=== PATIENT | female | born 2000 | race Caucasian/White ===

== ENCOUNTER 2021-03-27 14:21 | Emergency (ER) | payer BC, OTHER ==
[~2021-03-27] VITALS: Ht 162.5 cm; Wt 55.0 kg
[2021-03-27] MEDS ORDERED: PROMETHAZINE INJ 25 MG/ML (PHENERGAN) AMP IVP ONE (14:45)
[2021-03-27] MEDS ORDERED: PROM25TA14 PO (14:47)
--- NOTE | 2021-03-27 14:47 | ED General ---
General Stated Complaint: N/V,DIZZINESS 9 WKS PREG Source of Information: Patient Exam Limitations: No Limitations History of Present Illness Date Seen by Provider: Mar 27, 2021 Time Seen by Provider: 14:45 Initial Comments To ER with nausea vomiting dizziness cough and malaise and about 9 weeks gestation. . She was told if she cannot keep fluids down she should come to the emergency room. She has Zofran ODT at home but has not taken any today. She denies any abdominal pain or vaginal bleeding only complains of nausea. OB is at [facility] in [place] where she lives. Her significant other lives here and she intends to move here as well. Timing/Duration: 1-2 Days Severity: Moderate Associated Systoms: Nausea/Vomiting Allergies and Home Medications Allergies Coded Allergies: azithromycin (Verified Allergy, Mild, 03/27/21) Sulfa (Sulfonamide Antibiotics) (Verified Allergy, Unknown, 03/27/21) Home Medications Cefuroxime Axetil 250 Mg Tablet, 250 MG PO BID Prescribed by: KAILA LÓPEZ on 03/27/21 1709 Last Action: New Order Promethazine HCl 25 Mg Tablet, 25 MG PO Q6H PRN for NAUSEA/VOMITING Prescribed by: KAILA LÓPEZ on 03/27/21 1447 Patient Home Medication List Home Medication List Reviewed: Yes Review of Systems Review of Systems Constitutional: see HPI EENTM: see HPI Respiratory: no symptoms reported Gastrointestinal: No abdominal pain; nausea, vomiting Genitourinary: no symptoms reported Musculoskeletal: see HPI Skin: no symptoms reported Psychiatric/Neurological: No Symptoms Reported Hematologic/Lymphatic: No Symptoms Reported Physical Exam Vital Signs Vital Signs - First Documented 03/27/21 15:01 Temp 36.6 Pulse 98 Resp 18 B/P (MAP) 125/68 (87) Pulse Ox 98 O2 Delivery Room Air Capillary Refill : Height, Weight, BMI Height: '" Weight: lbs. oz. kg; BMI Method: General Appearance: No Apparent Distress, WD/WN, Thin, Other (No distress a little tachycardic rate of 110 alert and oriented very pleasant) Eyes: Bilateral Eye Normal Inspection, Bilateral Eye PERRL, Bilateral Eye EOMI Neck: Full Range of Motion, Normal Inspection Respiratory: No Accessory Muscle Use, No Respiratory Distress Cardiovascular: Normal Peripheral Pulses, Tachycardia Gastrointestinal: Non Tender, Soft Extremity: Normal Capillary Refill, Normal Inspection Neurologic/Psychiatric: Alert, Oriented x3 Skin: Normal Color, Warm/Dry Progress/Results/Core Measures Suspected Sepsis SIRS Temperature: Pulse: Respiratory Rate: Laboratory Tests 03/27/21 14:40: White Blood Count 10.7 Blood Pressure / Mean: Laboratory Tests 03/27/21 14:40: Creatinine 0.66, Platelet Count 204, Total Bilirubin 0.5 Results/Orders Lab Results Laboratory Tests Test 03/27/21 14:40 03/27/21 15:42 Range/Units White Blood Count 10.7 4.3-11.0 10^3/uL Red Blood Count 4.72 3.80-5.11 10^6/uL Hemoglobin 14.0 11.5-16.0 g/dL Hematocrit 41 35-52 % Mean Corpuscular Volume 88 80-99 fL Mean Corpuscular Hemoglobin 30 25-34 pg Mean Corpuscular Hemoglobin Concent 34 32-36 g/dL Red Cell Distribution Width 13.2 10.0-14.5 % Platelet Count 204 130-400 10^3/uL Mean Platelet Volume 10.0 9.0-12.2 fL Immature Granulocyte % (Auto) 0 % Neutrophils (%) (Auto) 79 H 42-75 % Lymphocytes (%) (Auto) 12 12-44 % Monocytes (%) (Auto) 7 0-12 % Eosinophils (%) (Auto) 1 0-10 % Basophils (%) (Auto) 0 0-10 % Neutrophils # (Auto) 8.5 H 1.8-7.8 10^3/uL Lymphocytes # (Auto) 1.3 1.0-4.0 10^3/uL Monocytes # (Auto) 0.8 0.0-1.0 10^3/uL Eosinophils # (Auto) 0.1 0.0-0.3 10^3/uL Basophils # (Auto) 0.0 0.0-0.1 10^3/uL Immature Granulocyte # (Auto) 0.0 0.0-0.1 10^3/uL Sodium Level 138 135-145 MMOL/L Potassium Level 3.6 3.6-5.0 MMOL/L Chloride Level 105 98-107 MMOL/L Carbon Dioxide Level 20 L 21-32 MMOL/L Anion Gap 13 5-14 MMOL/L Blood Urea Nitrogen 6 L 7-18 MG/DL Creatinine 0.66 0.60-1.30 MG/DL Estimat Glomerular Filtration Rate > 60 BUN/Creatinine Ratio 9 Glucose Level 82 70-105 MG/DL Calcium Level 9.2 8.5-10.1 MG/DL Corrected Calcium 9.0 8.5-10.1 MG/DL Total Bilirubin 0.5 0.1-1.0 MG/DL Aspartate Amino Transf (AST/SGOT) 17 5-34 U/L Alanine Aminotransferase (ALT/SGPT) 12 0-55 U/L Alkaline Phosphatase 59 40-136 U/L Total Protein 7.3 6.4-8.2 GM/DL Albumin 4.3 3.2-4.5 GM/DL Human Chorionic Gonadotropin, Quant [id number] H <5 MIU/ML Urine Color YELLOW Urine Clarity CLEAR Urine pH 6.0 5-9 Urine Specific [place] <=1.005 1.016-1.022 Urine Protein NEGATIVE NEGATIVE Urine Glucose (UA) NEGATIVE NEGATIVE Urine Ketones TRACE H NEGATIVE Urine Nitrite POSITIVE H NEGATIVE Urine Bilirubin NEGATIVE NEGATIVE Urine Urobilinogen 0.2 < = 1.0 MG/DL Urine Leukocyte Esterase 2+ H NEGATIVE Urine RBC (Auto) NEGATIVE NEGATIVE Urine RBC NONE /HPF Urine WBC 5-10 H /HPF Urine Crystals PRESENT H /LPF Urine Amorphous Sediment FEW CRISTÓBAL URATES H /LPF Urine Bacteria LARGE H /HPF Urine Casts NONE /LPF Urine Mucus NEGATIVE /LPF Urine Culture Indicated YES My Orders Orders - KAILA LÓPEZ APRN Cbc With Automated Diff (03/27/21 14:41) Comprehensive Metabolic Panel (03/27/21 14:41) Ua Culture If Indicated (03/27/21 14:41) Hcg,Quantitative (03/27/21 14:41) Ed Iv/Invasive Line Start (03/27/21 14:41) Lactated Ringers (Lr 1000 Ml Iv Solution (03/27/21 14:45) Promethazine Injection (Phenergan Injec (03/27/21 14:45) Diphenhydramine Injection (Benadryl Inje (03/27/21 16:00) Ondansetron Injection (Zofran Injectio (03/27/21 16:15) Urine Culture (03/27/21 15:42) Ceftriaxone (Rocephin) (03/27/21 16:30) Lactated Ringers (Lr 1000 Ml Iv Solution (03/27/21 16:45) Covid 19 Inhouse Test (03/27/21 17:11) Medications Given in ED Current Medications Medications Dose Ordered Sig/Jade Route Start Time Stop Time Status Last Admin Dose Admin Ceftriaxone Sodium 1000 mg/ Sterile Water 10 ml @ 200 mls/hr ONCE ONCE IV 03/27/21 16:30 03/27/21 16:32 DC 03/27/21 16:40 200 MLS/HR Diphenhydramine HCl 25 mg ONCE ONCE IVP 03/27/21 16:00 03/27/21 16:01 DC 03/27/21 16:09 25 MG Ondansetron HCl 8 mg ONCE ONCE IVP 03/27/21 16:15 03/27/21 16:16 DC 03/27/21 16:09 8 MG Promethazine HCl 25 mg ONCE ONCE IVP 03/27/21 14:45 03/27/21 14:46 DC 03/27/21 14:51 25 MG Vital Signs/I&O 03/27/21 15:01 Temp 36.6 Pulse 98 Resp 18 B/P (MAP) 125/68 (87) Pulse Ox 98 O2 Delivery Room Air Capillary Refill : Departure Communication (Admissions) Limited Bedside transabdominal US shows intrauterine with cardiac ac tivity at 165-170 bpm. Impression Primary Impression: Nausea and vomiting in Disposition: HOME, SELF-CARE Condition: Stable Departure-Patient Inst. Decision time for Depature: 14:46 Referrals: DAVID GARZA BETHANY N MD GAULT, HOLLY R MD KOEHN, DANIEL J MD NO,LOCAL PHYSICIAN (PCP) Primary Care Physician Patient Instructions: Nausea and Vomiting of (DC), Urinary Tract Infection, Adult (DC) Add. Discharge Instructions: 1. Medication as directed. Return to ER for any concerns. Use your Zofran oral dissolving tablets as necessary. If these are unable to control the nausea then use the additional nausea medication. Scripts Cefuroxime Axetil (Cefuroxime) 250 Mg Tablet 250 MG PO BID, #10 TAB Prov: KAILA LÓPEZ MUTUAL FUND MANAGER 03/27/21 Promethazine HCl (Promethazine Tablet) 25 Mg Tablet 25 MG PO Q6H PRN for NAUSEA/VOMITING, #10 TAB Prov: KAILA LÓPEZ MUTUAL FUND MANAGER 03/27/21 KAILA LÓPEZ APRN Mar 27, 2021 14:47
[2021-03-27 14:50] LABS: BASOPHILS % (AUTO) 0 % (0-10); EOSINOPHILS # (AUTO) 0.1 10^3/uL (0.0-0.3); EOSINOPHILS % (AUTO) 1 % (0-10); HEMATOCRIT 41 % (35-52); LYMPHOCYTES # (AUTO) 1.3 10^3/uL (1.0-4.0); LYMPHOCYTES % (AUTO) 12 % (12-44); MEAN CORPUSCULAR HEMOGLOBIN 30 pg (25-34); MEAN CORPUSCULAR HGB CONC 34 g/dL (32-36); MEAN CORPUSCULAR VOLUME 88 fL (80-99); MONOCYTES # (AUTO) 0.8 10^3/uL (0.0-1.0); MONOCYTES % (AUTO) 7 % (0-12); NEUTROPHILS # (AUTO) 8.5 10^3/uL (1.8-7.8); NEUTROPHILS % (AUTO) 79 % (42-75); PLATELET COUNT 204 10^3/uL (130-400); WHITE BLOOD COUNT 10.7 10^3/uL (4.3-11.0)
[2021-03-27] MEDS: LACTATED RINGERS 1,000 ML IV SCH ×2 (14:51→16:45)
[2021-03-27 15:00] LABS: ALBUMIN 4.3 GM/DL (3.2-4.5); CHLORIDE 105 MMOL/L (98-107); POTASSIUM 3.6 MMOL/L (3.6-5.0); SODIUM 138 MMOL/L (135-145)
[2021-03-27 15:02] LABS: CALCIUM 9.2 MG/DL (8.5-10.1)
[2021-03-27 15:03] LABS: GLUCOSE 82 MG/DL (70-105); TOTAL PROTEIN 7.3 GM/DL (6.4-8.2)
[2021-03-27 15:04] LABS: CARBON DIOXIDE 20 MMOL/L (21-32)
[2021-03-27 15:05] LABS: BILIRUBIN,TOTAL 0.5 MG/DL (0.1-1.0)
[2021-03-27 15:06] LABS: ALKALINE PHOSPHATASE 59 U/L (40-136); CREATININE SERUM 0.66 MG/DL (0.60-1.30); GFR ESTIMATED > 60
[2021-03-27 15:07] LABS: BUN/CREATININE RATIO 9
[2021-03-27 15:09] LABS: ALANINE AMINOTRANSFERASE 12 U/L (0-55)
[2021-03-27 15:50] LABS: BILIRUBIN,URINE NEGATIVE (NEGATIVE); CLARITY,URINE CLEAR; COLOR,URINE YELLOW; GLUCOSE, URINE (UA) NEGATIVE (NEGATIVE); KETONES,URINE TRACE (NEGATIVE); LEUKOCYTE ESTERASE ,URINE 2+ (NEGATIVE); NITRITE,URINE POSITIVE (NEGATIVE); PROTEIN,URINE NEGATIVE (NEGATIVE)
[2021-03-27] MEDS ORDERED: diphenhydrAMINE 50 MG/ML INJ (BENADRYL) IVP ONE (16:00)
[2021-03-27] MEDS ORDERED: ONDANSETRON 4 MG (ZOFRAN) ORAL DISSOLVE TAB PO STA (16:00)
[2021-03-27] MEDS ORDERED: ONDANSETRON 4 MG/2 ML (SDV) Z0FRAN IVP ONE (16:15)
[2021-03-27 16:20] LABS: AMORPHOUS SEDIMENT,UR FEW AMOR URATES /LPF; BACTERIA,URINE LARGE /HPF
[2021-03-27] MEDS ORDERED: cefTRIAXone 1,000 MG in WATER (STERILE) FOR INJECTION 10 ML IV ONE (16:30)
[2021-03-27] MEDS ORDERED: LACTATED RINGERS 1,000 ML IV SCH (16:45)
[2021-03-27] MEDS ORDERED: CEFU250T80 PO (17:09)
[2021-03-27 17:19] VITALS: BP 114/60
== END 2021-03-27 17:19 | disposition home or self-care (01) ==
LOC: ER 14:24
DX: O21.0 Mild hyperemesis gravidarum (principal); Z3A.09 9 weeks gestation of pregnancy; Z20.822 Contact with and (suspected) exposure to COVID-19
CPT/HCPCS: 36415; 80053; 81000; 84702; 85025; 87077; 87088; 87186; 87636

== ENCOUNTER 2021-05-10 23:30 | Emergency (ER) | payer BC ==
[~2021-05-10 23:30] MED LIST: CEFU250T80 PO; PROM25TA14 PO
== END 2021-05-11 00:37 | disposition left against medical advice (07) ==
LOC: EDUNIT# 23:30 → ER 23:32
DX: O26.891 Other specified pregnancy related conditions, first trimester (principal); R20.0 Anesthesia of skin; Z3A.15 15 weeks gestation of pregnancy

== ENCOUNTER 2021-05-29 21:44 | Emergency (ER) | payer BC ==
[2021-05-29] MEDS ORDERED: CEPHALEXIN 250 MG (KEFLEX) CAP PO ONE ×2 (22:00→22:15)
[2021-05-29] MEDS ORDERED: ACETAMINOPHEN 500 MG TAB (TYLENOL) PO ONE (22:00)
--- NOTE | 2021-05-29 22:22 | ED General ---
General Chief Complaint: Bite-Animal/Human/Insect Stated Complaint: LT ARM PAIN/BURNING SPIDER BITE Nursing Triage Note: Pt presents with a spider bite to left upper arm. Pt said she noticed it about 6 hours ago. Source of Information: Patient Exam Limitations: No Limitations History of Present Illness Date Seen by Provider: May 29, 2021 Time Seen by Provider: 21:50 Initial Comments Patient is a 20-year-old G1, P0, 19-week expectant female who presents with spider bite to left tricep region. Patient noted pain and itching in this region several hours ago. She is in the process of cleaning a new home which has stirred up brown recluse spiders. Patient denies direct observation of spider bite. She states over the past several hours there has become more tender indurated and swollen. She reports feeling weak body aches malaise. No shortness of breath chest pain or palpitations. No fever chills or sweats. No history of spider allergy. However, patient states she has previously been bit by a brown recluse spider in her right arm. Timing/Duration: 4-6 Hours Severity: Mild Modifying Factors: improves with Other Associated Systoms: Other Allergies and Home Medications Allergies Coded Allergies: azithromycin (Verified Allergy, Mild, 03/27/21) Sulfa (Sulfonamide Antibiotics) (Verified Allergy, Unknown, 03/27/21) Patient Home Medication List Home Medication List Reviewed: Yes Cefuroxime Axetil (Cefuroxime) 250 Mg Tablet, 250 MG PO BID Prescribed by: KAILA LÓPEZ on 03/27/21 1709 Promethazine HCl (Promethazine Tablet) 25 Mg Tablet, 25 MG PO Q6H PRN for NAUSEA/VOMITING Prescribed by: KAILA LÓPEZ on 03/27/21 1447 Review of Systems Review of Systems Constitutional: no symptoms reported, see HPI Cardiovascular: see HPI Gastrointestinal: see HPI Genitourinary: see HPI Musculoskeletal: see HPI Psychiatric/Neurological: See HPI Hematologic/Lymphatic: See HPI Immunological/Allergic: see HPI All Other Systems Reviewed Negative Unless Noted: Yes Past Ecjchbt-Mbvxga-Ltiruz Hx Patient Social History Tobacco Use?: No Use of E-Cig and/or Vaping dev: No Substance use?: No Pt feels they are or have been: No Physical Exam Vital Signs Vital Signs - First Documented 05/29/21 21:46 Pulse 97 Resp 18 B/P (MAP) 140/68 (92) Pulse Ox 100 O2 Delivery Room Air Capillary Refill : Less Than 3 Seconds Height, Weight, BMI Height: '" Weight: lbs. oz. kg; 20.00 BMI Method: General Appearance: No Apparent Distress, WD/WN Eyes: Bilateral Eye Normal Inspection, Bilateral Eye PERRL HEENT: PERRL/EOMI Neck: Full Range of Motion, Normal Inspection Respiratory: Lungs Clear Cardiovascular: Regular Rate, Rhythm Extremity: Other (Tender indurated erythematous region in the left mid central tricep. No fluctuance, drainage, weeping. No streaking.) Focused Exam Sepsis Stage: Ruled Out Progress/Results/Core Measures Suspected Sepsis SIRS Temperature: Pulse: 97 Respiratory Rate: 18 Blood Pressure 140 /68 Mean: 92 Results/Orders My Orders Orders - DAPHNE CASTRO DO Acetaminophen Tablet (Tylenol Tablet) (05/29/21 22:00) Cephalexin Capsule (Keflex Capsule) (05/29/21 22:15) Medications Given in ED Current Medications Medications Dose Ordered Sig/Jade Route Start Time Stop Time Status Last Admin Dose Admin Acetaminophen 1,000 mg ONCE ONCE PO 05/29/21 22:00 05/29/21 22:01 DC 05/29/21 22:17 1,000 MG Cephalexin HCl 250 mg ONCE ONCE PO 05/29/21 22:15 05/29/21 22:16 DC 05/29/21 22:17 250 MG Vital Signs/I&O 05/29/21 21:46 Pulse 97 Resp 18 B/P (MAP) 140/68 (92) Pulse Ox 100 O2 Delivery Room Air Capillary Refill : Less Than 3 Seconds Blood Pressure Mean: 92 Departure Communication (Admissions) Exam consistent with spider bite with localized reaction and symptoms of mild symptoms spider venom toxicity. Tylenol and Keflex given. Recommendations are watchful waiting supportive care with PCP follow-up. Return precautions reviewed. Patient verbalizes understanding agreement with discharge instructions prior to departure Impression Primary Impression: Spider bite, venomous Disposition: HOME, SELF-CARE Condition: Stable Departure-Patient Inst. Referrals: NO,LOCAL PHYSICIAN (PCP/Family) Primary Care Physician Patient Instructions: Insect Bites and Stings ED Add. Discharge Instructions: You were evaluated in the emergency department for a spider bite to your left tricep. Please take 650 mg of Tylenol 4 times daily and antibiotics as directed. Follow-up with your PCP in 3 to 5 days for reevaluation. Return to the ED if new or worsening symptoms. All discharge instructions reviewed with patient and/or family. Voiced understanding. Scripts Cephalexin (Cephalexin) 500 Mg Tablet 250 MG PO TID, #21 TAB Prov: DAPHNE CASTRO DO 05/29/21 DAPHNE CASTRO DO May 29, 2021 22:22
[2021-05-29] MEDS ORDERED: CEPH500T PO (22:28)
[2021-05-29 22:33] VITALS: BP 140/68
== END 2021-05-29 22:34 | disposition home or self-care (01) ==
LOC: EDUNIT# 21:44 → ER FS 21:45
DX: O99.712 Diseases of the skin and subcutaneous tissue complicating pregnancy, second trimester (principal); T63.331A Toxic effect of venom of brown recluse spider, accidental (unintentional), initial encounter; Z3A.19 19 weeks gestation of pregnancy
CPT/HCPCS: 99281

== ENCOUNTER 2021-07-23 06:36 | Emergency (ER) | payer BC ==
[~2021-07-23] VITALS: Ht 162.7 cm; Wt 67.7 kg
[~2021-07-23 06:36] MED LIST changes: +CEPH500T PO
--- NOTE | 2021-07-23 06:47 | ED Chest Pain ---
General Stated Complaint: CP,26 WKS PREG Source: patient Exam Limitations: no limitations History of Present Illness Date Seen by Provider: Jul 23, 2021 Time Seen by Provider: 06:40 Initial Comments 20yoF with PMH of PCOS, ovarian cysts, anxiety, and is 26 weeks (LMP 11/17/20) following with OB in [place] woke up 0345 with midline chest pain radiating to throat. Nothing like this before. H/o panic attacks and anxiety. Took tums and drank some water which helped. One episode of nb/b emesis after. Says the pain is severe and dull, worse with moving or talking. Slightly different than her normal GERD. Otherwise denying fever, chills, weakness, numbness, SOB, abd pain, diarrhea, or any other concerns. has been uncomplicated, feeling baby move, no vaginal bleeding, no loss of fluids. Allergies and Home Medications Allergies Coded Allergies: azithromycin (Verified Allergy, Mild, 03/27/21) Sulfa (Sulfonamide Antibiotics) (Verified Allergy, Unknown, 03/27/21) Patient Home Medication List Home Medication List Reviewed: Yes Cefuroxime Axetil (Cefuroxime) 250 Mg Tablet, 250 MG PO BID Prescribed by: KAILA LÓPEZ on 03/27/21 1709 Cephalexin (Cephalexin) 500 Mg Tablet, 250 MG PO TID Prescribed by: DAPHNE CASTRO on 05/29/21 2228 Promethazine HCl (Promethazine Tablet) 25 Mg Tablet, 25 MG PO Q6H PRN for NAUSEA/VOMITING Prescribed by: KAILA LÓPEZ on 03/27/21 1447 Review of Systems Review of Systems Constitutional: No chills, No fever EENTM: No Blurred Vision Respiratory: Denies Cough, Denies Shortness of Air Cardiovascular: Chest Pain Gastrointestinal: Denies Abdominal Pain, Denies Diarrhea, Denies Nausea, Denies Vomiting Genitourinary: Denies Burning Musculoskeletal: No back pain Skin: no symptoms reported Psychiatric/Neurological: No Symptoms Reported Endocrine: No Symptoms Reported Hematologic/Lymphatic: No Symptoms Reported All Other Systems Reviewed Negative Unless Noted: Yes Past Pbswiqd-Wwvkmv-Dckaac Hx Patient Social History Tobacco Use?: No Substance use?: No Alcohol Use?: No Past Medical History Surgeries: No Physical Exam Vital Signs Vital Signs - First Documented 07/23/21 06:50 Temp 36.6 Pulse 78 Resp 20 B/P (MAP) 109/60 (76) O2 Delivery Room Air Capillary Refill : Height, Weight, BMI Height: '" Weight: lbs. oz. kg; 20.00 BMI Method: General Appearance: No Apparent Distress, WD/WN HEENT: PERRL/EOMI, Normal ENT Inspection, Pharynx Normal Neck: Full Range of Motion, Normal Inspection, Non Tender, Supple Respiratory: Chest Non Tender, Lungs Clear, Normal Breath Sounds, No Accessory Muscle Use, No Respiratory Distress Cardiovascular: Regular Rate, Rhythm, No Edema, Normal Peripheral Pulses Gastrointestinal: Normal Bowel Sounds, Non Tender, Soft; No Distended, No Guarding; Other (gravid uterus) Extremity: Normal Capillary Refill, Normal Inspection, Normal Range of Motion, Non Tender, No Calf Tenderness, No Pedal Edema Neurologic/Psychiatric: Alert, No Motor/Sensory Deficits, Normal Mood/Affect Skin: Normal Color, Warm/Dry Lymphatic: No Adenopathy Progress/Results/Core Measures Results/Orders Lab Results Laboratory Tests Test 07/23/21 07:30 Range/Units White Blood Count 11.5 H 4.3-11.0 10^3/uL Red Blood Count 4.27 3.80-5.11 10^6/uL Hemoglobin 12.6 11.5-16.0 g/dL Hematocrit 38 35-52 % Mean Corpuscular Volume 88 80-99 fL Mean Corpuscular Hemoglobin 30 25-34 pg Mean Corpuscular Hemoglobin Concent 33 32-36 g/dL Red Cell Distribution Width 12.6 10.0-14.5 % Platelet Count 227 130-400 10^3/uL Mean Platelet Volume 10.6 9.0-12.2 fL Immature Granulocyte % (Auto) 1 % Neutrophils (%) (Auto) 73 42-75 % Lymphocytes (%) (Auto) 16 12-44 % Monocytes (%) (Auto) 8 0-12 % Eosinophils (%) (Auto) 2 0-10 % Basophils (%) (Auto) 0 0-10 % Neutrophils # (Auto) 8.4 H 1.8-7.8 10^3/uL Lymphocytes # (Auto) 1.8 1.0-4.0 10^3/uL Monocytes # (Auto) 0.9 0.0-1.0 10^3/uL Eosinophils # (Auto) 0.2 0.0-0.3 10^3/uL Basophils # (Auto) 0.0 0.0-0.1 10^3/uL Immature Granulocyte # (Auto) 0.1 0.0-0.1 10^3/uL Sodium Level 137 135-145 MMOL/L Potassium Level 3.4 L 3.6-5.0 MMOL/L Chloride Level 108 H 98-107 MMOL/L Carbon Dioxide Level 18 L 21-32 MMOL/L Anion Gap 11 5-14 MMOL/L Blood Urea Nitrogen 5 L 7-18 MG/DL Creatinine 0.53 L 0.60-1.30 MG/DL Estimat Glomerular Filtration Rate 146 BUN/Creatinine Ratio 9 Glucose Level 90 70-105 MG/DL Calcium Level 9.1 8.5-10.1 MG/DL Corrected Calcium 9.6 8.5-10.1 MG/DL Total Bilirubin 0.3 0.1-1.0 MG/DL Aspartate Amino Transf (AST/SGOT) 17 5-34 U/L Alanine Aminotransferase (ALT/SGPT) 14 0-55 U/L Alkaline Phosphatase 146 H 40-136 U/L Troponin I < 0.028 <0.028 NG/ML B-Type Natriuretic Peptide < 10.0 <100.0 PG/ML Total Protein 6.4 6.4-8.2 GM/DL Albumin 3.4 3.2-4.5 GM/DL Lipase 27 8-78 U/L My Orders Orders - JOSE PLASENCIA MD Ed Iv/Invasive Line Start (07/23/21 07:18) Ekg Tracing (07/23/21 07:18) Monitor-Rhythm Ecg Trace Only (07/23/21 07:18) BNP (07/23/21 07:18) Cbc With Automated Diff (07/23/21 07:18) Comprehensive Metabolic Panel (07/23/21 07:18) Lipase (07/23/21 07:18) Troponin I (07/23/21 07:18) Chest 1 View, Ap/Pa Only (07/23/21 07:18) Antacid Suspension (Mylanta Suspension (07/23/21 07:30) Acetaminophen Tablet (Tylenol Tablet) (07/23/21 07:30) Medications Given in ED Current Medications Medications Dose Ordered Sig/Jade Route Start Time Stop Time Status Last Admin Dose Admin Acetaminophen 1,000 mg ONCE ONCE PO 07/23/21 07:30 07/23/21 07:31 DC 07/23/21 07:28 1,000 MG Al Hydrox/Mg Hydrox/Simethicone 30 ml ONCE ONCE PO 07/23/21 07:30 07/23/21 07:31 DC 07/23/21 07:33 30 ML Vital Signs/I&O 07/23/21 06:50 Temp 36.6 Pulse 78 Resp 20 B/P (MAP) 109/60 (76) O2 Delivery Room Air Progress Progress Note : Progress Note Well-appearing 20-year-old female that is 26 weeks coming in due to chest pain. ABCs were intact and vitals were stable on presentation. Physical exam reassuring, she does have a gravid uterus with a soft abdomen otherwise with no pain on palpation. Heart rate is in the 80s. She is low risk for a PE per Garden criteria and is PERC negative effectively ruling out PE. She has no risk factors for early cardiac disease, and does not smoke. She was given Tylenol and Maalox for her discomfort. I did a [id number]-kh-[id number] ultrasound and there was heart movements and the heart rate was around 130. Labs were significant for negative troponin, normal BNP, slightly low potassium, normal creatinine. Chest x-ray normal. On reevaluation she was well appearing and relatively symptom-free. I believe she is stable for discharge with outpatient follow-up with her OB. She is not having any real OB complaints including no vomiting, abdominal pain, LFTs are normal today, no vaginal bleeding, and has had a normal . She was sent home with strict return precautions peer Initial ECG Impression Date: Jul 23, 2021 Initial ECG Impression Time: 07:26 Initial ECG Rate: 73 Initial ECG Rhythm: Normal Sinus Initial ECG Comparisson: No Previous ECG Available Comment Narrow QRS, normal axis, no significant ST changes, Q wave inversions in leads III, V1, and V2 which are all nonspecific Diagnostic Imaging Diagonstic Imaging: Xray Plain Films/CT/US/NM/MRI: chest Comments [facility] [place], [place] NAME: [facility] REC#: [id number] PT STATUS: REG ER : 2000 PHYSICIAN: JOSE PLASENCIA MD ADMIT DATE: 07/23/21/ER Draft Date of Exam:07/23/21 CHEST 1 VIEW, AP/PA ONLY INDICATION: Chest pain. TIME OF EXAM: 8:00 a.m. No prior studies are available for comparison. The heart size is normal. The pulmonary vascularity is unremarkable. The lungs are clear. No infiltrate, effusion or pneumothorax is detected. IMPRESSION: No acute cardiopulmonary process is detected. Dictated on workstation # [id number] Dict: 07/23/21820 Trans: 07/23/21824 [facility] [id number] Interpreted by: RACHEL GUNTER MD Electronically signed by: Departure Impression Primary Impression: Chest pain Qualified Codes: R07.9 - Chest pain, unspecified Additional Impression: Qualified Codes: Z3A.26 - 26 weeks gestation of Disposition: 01 HOME, SELF-CARE Condition: Stable Departure-Patient Inst. Decision time for Depature: 08:32 Referrals: NO,LOCAL PHYSICIAN (PCP/Family) Primary Care Physician Patient Instructions: Chest Pain Add. Discharge Instructions: You are seen in the emergency department for chest pain. Fortunately your EKG, chest x-ray, and labs are all reassuring and it does not appear like you are having anything serious such as a heart attack or a blood clot. This is likely related to worsening of your GERD symptoms as this happens during . I recommend taking some [id number]-zet-zwdvqiz Maalox when symptoms are getting worse. I do recommend you follow-up with your OB within the next couple of days. JOSE PLASENCIA MD Jul 23, 2021 06:47
[2021-07-23] MEDS ORDERED: ACETAMINOPHEN 500 MG TAB (TYLENOL) PO ONE (07:30)
[2021-07-23] MEDS ORDERED: ANTACID SUSP 30 ML UDC (MYLANTA) PO ONE (07:30)
--- OUTSIDE RECORDS SUMMARY | 2021-07-23 07:36 | XMS REPORT | Encounter Summary ---
Author Author [facility] Address Unknown Phone Unavailable Care Team Providers Care Implementation Director Name Role Phone PCP Unavailable Reason for Referral * Consultation (Routine) - Closed Diagnoses / Procedures [facility] Lashae Dinh MD [address] [place] [address] [facility] [address], [address] [place] [address] Obstetrics and Gynecology Referral ID Status Reason Start Date Expiration Visits Vi sits Date Requested Authorized [id number] Closed Specialty Services 05/27/2021 11/24/2021 1 1 Required Encounter Details Care Team Description Date Type Department Lashae Dinh MD [address] [place] [address] (Primary Dx) 05/27/2021 Transcribe [facility] al Orders [facility] [address], [address] [place] [address] Social History Date Tobacco Use Types Packs/Day Years Used Never Assessed Sex Assigned at Date Recorded Not on file documented as of this encounter Plan of Treatment Order Schedule Name Type Priority Associated Diag noses 1 Occurrences starting 05/27/2021 until 11/24/2021 Amb Referral To Ob-Pharmacy Operations Specialist Outpatient Routine Pregnan cy Referral documented as of this encounter Visit Diagnoses Diagnosis - Primary state, incidental documented in this encounter
--- OUTSIDE RECORDS SUMMARY | 2021-07-23 07:36 | XMS REPORT | Clinical Summary ---
Author Author [facility] Organization [facility] Address Unknown Phone Unavailable Care Team Providers Care Welding Equipment Sales Representative Name Role Phone PCP Unavailable Allergies Not on File Medications Not on file Active Problems Not on file Encounters Care Team Description Date Type Specialty Lashae Dinh MD (Primary Dx) 05/27/2021 Transcribe Obstetrics and Gyne cology Orders 05/27/2021 Documentation Obstetrics and Gyne cology from Last 3 Months Social History Date Tobacco Use Types Packs/Day Years Used Never Assessed Sex Assigned at Date Recorded Not on file Last Filed Vital Signs Not on file Plan of Treatment Not on file Results Not on filefrom Last 3 Months Insurance Type Payer Benefit Subscriber ID Effective Phone Address Plan / Dates Group [facility] [id number] 2020-P [id number] [place] [address] [id number] 2021- [address]) HEALTH Present [address] [place] [address] Advance Directives For more information, please contact: [phone] 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
--- OUTSIDE RECORDS SUMMARY | 2021-07-23 07:36 | XMS REPORT | Encounter Summary ---
Author Author [facility] Organization [facility] Address Unknown Phone Unavailable Care Team Providers Care Course Developer Name Role Phone PCP Unavailable Encounter Details Care Team Description Date Type Department 05/27/2021 Documentation [facility] [address], [address] [place] [address] Social History Date Tobacco Use Types Packs/Day Years Used Never Assessed Sex Assigned at Date Recorded Not on file documented as of this encounter Plan of Treatment Not on filedocumented as of this encounter Visit Diagnoses Not on filedocumented in this encounter
[2021-07-23 07:42] LABS: BASOPHILS % (AUTO) 0 % (0-10); EOSINOPHILS # (AUTO) 0.2 10^3/uL (0.0-0.3); EOSINOPHILS % (AUTO) 2 % (0-10); HEMATOCRIT 38 % (35-52); HEMOGLOBIN 12.6 g/dL (11.5-16.0); LYMPHOCYTES # (AUTO) 1.8 10^3/uL (1.0-4.0); LYMPHOCYTES % (AUTO) 16 % (12-44); MEAN CORPUSCULAR HEMOGLOBIN 30 pg (25-34); MEAN CORPUSCULAR HGB CONC 33 g/dL (32-36); MEAN CORPUSCULAR VOLUME 88 fL (80-99); MEAN PLATELET VOLUME 10.6 fL (9.0-12.2); MONOCYTES # (AUTO) 0.9 10^3/uL (0.0-1.0); MONOCYTES % (AUTO) 8 % (0-12); NEUTROPHILS # (AUTO) 8.4 10^3/uL (1.8-7.8); NEUTROPHILS % (AUTO) 73 % (42-75); PLATELET COUNT 227 10^3/uL (130-400); WHITE BLOOD COUNT 11.5 10^3/uL (4.3-11.0)
[2021-07-23 08:08] LABS: ALANINE AMINOTRANSFERASE 14 U/L (0-55); ALBUMIN 3.4 GM/DL (3.2-4.5); ALKALINE PHOSPHATASE 146 U/L (40-136); BILIRUBIN,TOTAL 0.3 MG/DL (0.1-1.0); BUN/CREATININE RATIO 9; CALCIUM 9.1 MG/DL (8.5-10.1); CARBON DIOXIDE 18 MMOL/L (21-32); CHLORIDE 108 MMOL/L (98-107); CREATININE SERUM 0.53 MG/DL (0.60-1.30); GFR ESTIMATED 146; GLUCOSE 90 MG/DL (70-105); LIPASE 27 U/L (8-78); POTASSIUM 3.4 MMOL/L (3.6-5.0); SODIUM 137 MMOL/L (135-145); TOTAL PROTEIN 6.4 GM/DL (6.4-8.2)
--- NOTE | 2021-07-23 08:25 | Diagnostic Imaging Report ---
INDICATION: Chest pain. TIME OF EXAM: 8:00 a.m. No prior studies are available for comparison. The heart size is normal. The pulmonary vascularity is unremarkable. The lungs are clear. No infiltrate, effusion or pneumothorax is detected. IMPRESSION: No acute cardiopulmonary process is detected. Dictated by: Dictated on workstation # [id number]
[2021-07-23 09:17] VITALS: BP 109/67
== END 2021-07-23 09:22 | disposition home or self-care (01) ==
LOC: EDUNIT# 06:36 → ER 06:40
DX: O99.412 Diseases of the circulatory system complicating pregnancy, second trimester (principal); R07.9 Chest pain, unspecified; Z3A.26 26 weeks gestation of pregnancy
CPT/HCPCS: 36415; 71045; 80053; 83690; 83880; 84484; 85025; 93005

== ENCOUNTER 2021-09-06 19:48 | Outpatient (CLI) | payer BC ==
[~2021-09-06] VITALS: Ht 162 cm; Wt 69.3 kg
[2021-09-06 20:21] VITALS: BP 127/75
[2021-09-06 20:23] LABS: BILIRUBIN,URINE NEGATIVE (NEGATIVE); CLARITY,URINE SL CLOUDY; COLOR,URINE YELLOW; GLUCOSE, URINE (UA) NEGATIVE (NEGATIVE); KETONES,URINE TRACE (NEGATIVE); LEUKOCYTE ESTERASE ,URINE 2+ (NEGATIVE); NITRITE,URINE NEGATIVE (NEGATIVE); PROTEIN,URINE NEGATIVE (NEGATIVE)
[2021-09-06 20:27] VITALS: BP 127/75
[2021-09-06 20:39] LABS: BACTERIA,URINE LARGE /HPF; YEAST,URINE LARGE /HPF
[2021-09-06] MEDS ORDERED: ceFAZolin INJECTION 1,000 MG VIAL IV ONE (20:45)
[2021-09-06] MEDS ORDERED: ceFAZolin INJECTION 1,000 MG ONE (20:52)
[2021-09-06] MEDS ORDERED: NS IV 1000 ML 1,000 ML ONE (20:56)
[2021-09-06] MEDS: NS IV 1000 ML 1,000 ML IV SCH (21:01)
[2021-09-06 21:12] LABS: BASOPHILS % (AUTO) 0 % (0-10); EOSINOPHILS # (AUTO) 0.1 10^3/uL (0.0-0.3); EOSINOPHILS % (AUTO) 1 % (0-10); HEMATOCRIT 39 % (35-52); HEMOGLOBIN 12.4 g/dL (11.5-16.0); LYMPHOCYTES # (AUTO) 2.8 10^3/uL (1.0-4.0); LYMPHOCYTES % (AUTO) 21 % (12-44); MEAN CORPUSCULAR HEMOGLOBIN 26 pg (25-34); MEAN CORPUSCULAR HGB CONC 32 g/dL (32-36); MEAN CORPUSCULAR VOLUME 83 fL (80-99); MEAN PLATELET VOLUME 11.8 fL (9.0-12.2); MONOCYTES # (AUTO) 0.9 10^3/uL (0.0-1.0); MONOCYTES % (AUTO) 7 % (0-12); NEUTROPHILS # (AUTO) 9.2 10^3/uL (1.8-7.8); NEUTROPHILS % (AUTO) 70 % (42-75); PLATELET COUNT 261 10^3/uL (130-400); WHITE BLOOD COUNT 13.1 10^3/uL (4.3-11.0)
[2021-09-06 21:21] LABS: ALBUMIN 3.3 GM/DL (3.2-4.5); POTASSIUM 3.5 MMOL/L (3.6-5.0)
[2021-09-06] MEDS ORDERED: ACETAMINOPHEN 500 MG TAB (TYLENOL) ONE (21:21)
[2021-09-06] MEDS ORDERED: ONDANSETRON 4 MG/2 ML (SDV) Z0FRAN ONE (21:21)
[2021-09-06] MEDS ORDERED: FAMOTIDINE 20MG/2ML IV (PEPCID) ONE (21:21)
[2021-09-06 21:24] LABS: TOTAL PROTEIN 7.1 GM/DL (6.4-8.2)
[2021-09-06 21:26] LABS: BILIRUBIN,TOTAL 0.5 MG/DL (0.1-1.0)
[2021-09-06 21:28] LABS: CREATININE SERUM 0.56 MG/DL (0.60-1.30)
[2021-09-06 21:29] LABS: BILIRUBIN,DIRECT 0.2 MG/DL (0.0-0.3); BILIRUBIN,INDIRECT 0.3 MG/DL
[2021-09-06] MEDS ORDERED: ACETAMINOPHEN 500 MG TAB (TYLENOL) PO ONE (21:30)
[2021-09-06] MEDS ORDERED: FAMOTIDINE 20MG/2ML IV (PEPCID) IVP ONE (21:30)
[2021-09-06] MEDS ORDERED: ONDANSETRON 4 MG/2 ML (SDV) Z0FRAN IVP ONE (21:30)
[2021-09-07] MEDS: NS IV 1000 ML 1,000 ML IV SCH ×2 (02:04→06:54)
[2021-09-07 02:06] VITALS: BP 112/56
[2021-09-07 06:02] LABS: BASOPHILS % (AUTO) 0 % (0-10); EOSINOPHILS # (AUTO) 0.2 10^3/uL (0.0-0.3); EOSINOPHILS % (AUTO) 2 % (0-10); HEMATOCRIT 31 % (35-52); LYMPHOCYTES # (AUTO) 2.4 10^3/uL (1.0-4.0); LYMPHOCYTES % (AUTO) 24 % (12-44); MEAN CORPUSCULAR HEMOGLOBIN 27 pg (25-34); MEAN CORPUSCULAR HGB CONC 32 g/dL (32-36); MEAN CORPUSCULAR VOLUME 83 fL (80-99); MEAN PLATELET VOLUME 11.7 fL (9.0-12.2); MONOCYTES % (AUTO) 10 % (0-12); NEUTROPHILS # (AUTO) 6.3 10^3/uL (1.8-7.8); NEUTROPHILS % (AUTO) 64 % (42-75); PLATELET COUNT 209 10^3/uL (130-400)
[2021-09-07 06:26] LABS: ALBUMIN 2.5 GM/DL (3.2-4.5); POTASSIUM 3.6 MMOL/L (3.6-5.0)
[2021-09-07 06:28] LABS: TOTAL PROTEIN 5.3 GM/DL (6.4-8.2)
[2021-09-07 06:30] LABS: BILIRUBIN,TOTAL 0.4 MG/DL (0.1-1.0)
[2021-09-07 06:32] LABS: CREATININE SERUM 0.52 MG/DL (0.60-1.30)
[2021-09-07 08:32] VITALS: BP 119/85
--- NOTE | 2021-09-07 08:45 | History & Physical-OB ---
OB - Chief Complaint & HPI Date/Time Date of Admission: Date of Admission: Date seen by a Provider: Sep 06, 2021 Time Seen by a Provider: 08:39 Chief Complaint/History OB-Reason for Admission/Chief: See HPI Hx : 1 Hx Para: 0 Expected Date of Delivery: Nov 01, 2021 Gestational Age in Weeks: 32 Gestational Age in Days: 0 Other reason for admission: Patient admitted for observation last night due to RUQ pain and nausea. She came in for these complaints, and was found to have mildly elevated liver enzyme s. She reports that this pain started on Wednesday and progressively got worse. She denies feeling contractions. 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 History of Labs Laboratory Tests Test 09/06/21 20:08 09/06/21 21:00 09/06/21 22:12 09/07/21 05:38 Range/Units Urine Color YELLOW Urine Clarity SL CLOUDY Urine pH 6.0 5-9 Urine Specific [place] 1.015 L 1.016-1.022 Urine Protein NEGATIVE NEGATIVE Urine Glucose (UA) NEGATIVE NEGATIVE Urine Ketones TRACE H NEGATIVE Urine Nitrite NEGATIVE NEGATIVE Urine Bilirubin NEGATIVE NEGATIVE Urine Urobilinogen 0.2 < = 1.0 MG/DL Urine Leukocyte Esterase 2+ H NEGATIVE Urine RBC (Auto) 3+ H NEGATIVE Urine RBC 2-5 H /HPF Urine WBC 10-25 H /HPF Urine Squamous Epithelial Cells 10-25 H /HPF Urine Renal Epithelial Cells NONE /HPF Urine Crystals NONE /LPF Urine Bacteria LARGE H /HPF Urine Casts NONE /LPF Urine Mucus NEGATIVE /LPF Urine Yeast LARGE H /HPF Urine Culture Indicated YES White Blood Count 13.1 H 10.0 4.3-11.0 10^3/uL Red Blood Count 4.69 3.77 L 3.80-5.11 10^6/uL Hemoglobin 12.4 10.0 L 11.5-16.0 g/dL Hematocrit 39 31 L 35-52 % Mean Corpuscular Volume 83 83 80-99 fL Mean Corpuscular Hemoglobin 26 27 25-34 pg Mean Corpuscular Hemoglobin Concent 32 32 32-36 g/dL Red Cell Distribution Width 12.9 13.0 10.0-14.5 % Platelet Count 261 209 130-400 10^3/uL Mean Platelet Volume 11.8 11.7 9.0-12.2 fL Immature Granulocyte % (Auto) 1 1 % Neutrophils (%) (Auto) 70 64 42-75 % Lymphocytes (%) (Auto) 21 24 12-44 % Monocytes (%) (Auto) 7 10 0-12 % Eosinophils (%) (Auto) 1 2 0-10 % Basophils (%) (Auto) 0 0 0-10 % Neutrophils # (Auto) 9.2 H 6.3 1.8-7.8 10^3/uL Lymphocytes # (Auto) 2.8 2.4 1.0-4.0 10^3/uL Monocytes # (Auto) 0.9 1.0 0.0-1.0 10^3/uL Eosinophils # (Auto) 0.1 0.2 0.0-0.3 10^3/uL Basophils # (Auto) 0.0 0.0 0.0-0.1 10^3/uL Immature Granulocyte # (Auto) 0.1 0.1 0.0-0.1 10^3/uL Sodium Level 135 135 135-145 MMOL/L Potassium Level 3.5 L 3.6 3.6-5.0 MMOL/L Chloride Level 105 109 H 98-107 MMOL/L Carbon Dioxide Level 17 L 18 L 21-32 MMOL/L Anion Gap 13 8 5-14 MMOL/L Blood Urea Nitrogen 5 L 5 L 7-18 MG/DL Creatinine 0.56 L 0.52 L 0.60-1.30 MG/DL Estimat Glomerular Filtration Rate 137 149 BUN/Creatinine Ratio 9 10 Glucose Level 75 86 70-105 MG/DL Calcium Level 9.0 8.0 L 8.5-10.1 MG/DL Corrected Calcium 9.6 9.2 8.5-10.1 MG/DL Total Bilirubin 0.5 0.4 0.1-1.0 MG/DL Direct Bilirubin 0.2 0.0-0.3 MG/DL Indirect Bilirubin 0.3 MG/DL Aspartate Amino Transf (AST/SGOT) 86 H 85 H 5-34 U/L Alanine Aminotransferase (ALT/SGPT) 96 H 84 H 0-55 U/L Alkaline Phosphatase 344 H 264 H 40-136 U/L Total Protein 7.1 5.3 L 6.4-8.2 GM/DL Albumin 3.3 2.5 L 3.2-4.5 GM/DL Glucometer 80 70-110 MG/DL Test 09/07/21 06:04 Range/Units Glucometer 74 70-110 MG/DL Allergies and Home Medications Allergies Coded Allergies: azithromycin (Verified Allergy, Mild, 03/27/21) Sulfa (Sulfonamide Antibiotics) (Verified Allergy, Unknown, 03/27/21) Patient Home Medication List Home Medication List Reviewed: Yes Cefuroxime Axetil (Cefuroxime) 250 Mg Tablet, 250 MG PO BID Prescribed by: KAILA LÓPEZ on 03/27/21 1709 Cephalexin (Cephalexin) 500 Mg Tablet, 250 MG PO TID Prescribed by: DAPHNE CASTRO on 05/29/21 2228 Promethazine HCl (Promethazine Tablet) 25 Mg Tablet, 25 MG PO Q6H PRN for NAUSEA/VOMITING Prescribed by: KAILA LÓPEZ on 03/27/21 1447 OB - History Hx of Present Care: Yes Ultrasounds: Normal mid trimester US Obstetrical Complications: Gestational Diabetes Medical Complications: None Obstetrical History Hx : 1 Patient Past Medical History n/a Social History/Family History Alcohol Use: Occasionally Uses Recreational Drug Use: Yes Immunizations Influenza Vaccine Up-to-Date: No; Not Current OB - Admission Exam Physical Exam Vitals: Vital Signs 09/07/21 02:06 Temp 36.7 Pulse 69 Resp 16 B/P (MAP) 112/56 (74) Pulse Ox 99 O2 Delivery Room Air HEENT: NCAT Heart: Rhythm Normal Lungs: Clear Abdomen: Gravid Extremities: Normal Reflexes: Normal Heart Rate: 130's Accelerations: Accelerations Present Decelerations: No Decelerations Short Term Variability: Present Alf Variability: Average (6-25) Contractions on Admission: >10 Minutes Apart Intensity: Mild Labs Laboratory Tests Test 09/06/21 20:08 09/06/21 21:00 09/06/21 22:12 09/07/21 05:38 Range/Units Urine Color YELLOW Urine Clarity SL CLOUDY Urine pH 6.0 5-9 Urine Specific [place] 1.015 L 1.016-1.022 Urine Protein NEGATIVE NEGATIVE Urine Glucose (UA) NEGATIVE NEGATIVE Urine Ketones TRACE H NEGATIVE Urine Nitrite NEGATIVE NEGATIVE Urine Bilirubin NEGATIVE NEGATIVE Urine Urobilinogen 0.2 < = 1.0 MG/DL Urine Leukocyte Esterase 2+ H NEGATIVE Urine RBC (Auto) 3+ H NEGATIVE Urine RBC 2-5 H /HPF Urine WBC 10-25 H /HPF Urine Squamous Epithelial Cells 10-25 H /HPF Urine Renal Epithelial Cells NONE /HPF Urine Crystals NONE /LPF Urine Bacteria LARGE H /HPF Urine Casts NONE /LPF Urine Mucus NEGATIVE /LPF Urine Yeast LARGE H /HPF Urine Culture Indicated YES White Blood Count 13.1 H 10.0 4.3-11.0 10^3/uL Red Blood Count 4.69 3.77 L 3.80-5.11 10^6/uL Hemoglobin 12.4 10.0 L 11.5-16.0 g/dL Hematocrit 39 31 L 35-52 % Mean Corpuscular Volume 83 83 80-99 fL Mean Corpuscular Hemoglobin 26 27 25-34 pg Mean Corpuscular Hemoglobin Concent 32 32 32-36 g/dL Red Cell Distribution Width 12.9 13.0 10.0-14.5 % Platelet Count 261 209 130-400 10^3/uL Mean Platelet Volume 11.8 11.7 9.0-12.2 fL Immature Granulocyte % (Auto) 1 1 % Neutrophils (%) (Auto) 70 64 42-75 % Lymphocytes (%) (Auto) 21 24 12-44 % Monocytes (%) (Auto) 7 10 0-12 % Eosinophils (%) (Auto) 1 2 0-10 % Basophils (%) (Auto) 0 0 0-10 % Neutrophils # (Auto) 9.2 H 6.3 1.8-7.8 10^3/uL Lymphocytes # (Auto) 2.8 2.4 1.0-4.0 10^3/uL Monocytes # (Auto) 0.9 1.0 0.0-1.0 10^3/uL Eosinophils # (Auto) 0.1 0.2 0.0-0.3 10^3/uL Basophils # (Auto) 0.0 0.0 0.0-0.1 10^3/uL Immature Granulocyte # (Auto) 0.1 0.1 0.0-0.1 10^3/uL Sodium Level 135 135 135-145 MMOL/L Potassium Level 3.5 L 3.6 3.6-5.0 MMOL/L Chloride Level 105 109 H 98-107 MMOL/L Carbon Dioxide Level 17 L 18 L 21-32 MMOL/L Anion Gap 13 8 5-14 MMOL/L Blood Urea Nitrogen 5 L 5 L 7-18 MG/DL Creatinine 0.56 L 0.52 L 0.60-1.30 MG/DL Estimat Glomerular Filtration Rate 137 149 BUN/Creatinine Ratio 9 10 Glucose Level 75 86 70-105 MG/DL Calcium Level 9.0 8.0 L 8.5-10.1 MG/DL Corrected Calcium 9.6 9.2 8.5-10.1 MG/DL Total Bilirubin 0.5 0.4 0.1-1.0 MG/DL Direct Bilirubin 0.2 0.0-0.3 MG/DL Indirect Bilirubin 0.3 MG/DL Aspartate Amino Transf (AST/SGOT) 86 H 85 H 5-34 U/L Alanine Aminotransferase (ALT/SGPT) 96 H 84 H 0-55 U/L Alkaline Phosphatase 344 H 264 H 40-136 U/L Total Protein 7.1 5.3 L 6.4-8.2 GM/DL Albumin 3.3 2.5 L 3.2-4.5 GM/DL Glucometer 80 70-110 MG/DL Test 09/07/21 06:04 Range/Units Glucometer 74 70-110 MG/DL OB - Assessment/Plan/Diagnosis Assessment Assessment: observation Admission Dx 20 yo @ 32 weeks RUQ pain- suspected cholestasis vs biliary pain Elevated liver enzymes Postprandial nausea Admission Status: Observation Plan Other Plan Planning to send patient home today, with low/no fat diet Bile salts ordered but will be pending for a week Pepcid and Zofran sent in for symptoms Will continue Keflex course for UTI US tomorrow will include RUQ US. OLINDA ANGELO DO Sep 07, 2021 08:45
[2021-09-07] MEDS ORDERED: CEPH500T PO (08:48)
[2021-09-07] MEDS ORDERED: ONDA4TAB11 PO (08:48)
[2021-09-07] MEDS ORDERED: FAMO-119 PO (08:48)
== END 2021-09-07 09:41 | disposition home or self-care (01) ==
LOC: WSo 19:48 → LDRP 19:49 → WSo 09-07 09:41
PROVIDERS: ATTEND Obstetrics & Gynecology
DX: O26.893 Other specified pregnancy related conditions, third trimester (principal); R10.11 Right upper quadrant pain; R94.5 Abnormal results of liver function studies; R11.0 Nausea; Z3A.32 32 weeks gestation of pregnancy
CPT/HCPCS: 36415; 80053; 81000; 82247; 82248; 82947; 83789; 85025; 87077; 87088; 96361; 96374; 96375

== ENCOUNTER → 2021-09-08 | Outpatient (CLI) | payer BC ==
[~2021-09-08] MED LIST changes: +FAMO-119 PO; +ONDA4TAB11 PO
--- NOTE | 2021-09-08 15:46 | Diagnostic Imaging Report ---
PROCEDURE: US Gallbladder. TECHNIQUE: Multiple real-time grayscale images were obtained over the right upper quadrant in various projections. INDICATION: Right upper quadrant abdominal pain, patient is . FINDINGS: The size and echogenicity of the liver is normal. There is no mass or intrahepatic biliary duct dilatation. Blood flow is normal. The common bile duct is normal at 5 mm. The pancreas, IVC, and aorta are grossly normal. The gallbladder wall and lumen are unremarkable. The right kidney measures 11 cm. There is moderate hydronephrosis. There is no ascites. IMPRESSION: 1. No cholelithiasis or cholecystitis. 2. Moderate right renal hydronephrosis. Dictated by: Dictated on workstation # [id number]
--- NOTE | 2021-09-08 17:19 | Diagnostic Imaging Report ---
INDICATION: Gestational diabetes mellitus TECHNIQUE: Multiple real-time grayscale images were obtained over the gravid uterus. COMPARISON: None available FINDINGS: Single live intrauterine is in cephalic presentation. Due to advanced gestation, maternal adnexa are suboptimally evaluated. The placenta is anteriorly located and there are no features of previa. The amount of amniotic fluid is normal with an CIPRIANO of 20.96 cm. Due to advanced gestational age, anatomy survey was not able to be performed. Biometrical measurements are as follows: Biparietal 7.91 cm, age 31 weeks 6 days. Head circumference 30.19 cm, age 33 weeks 4 days. Abdominal circumference 26.56 cm, age 30 weeks 5 days. Femur length 6.08 cm, age 31 weeks 5 days. Sonographic estimate age: 32 weeks 0 days. Sonographic estimated date of delivery: 11/03/2021. Estimated Weight: 1745 gm (+/- 255 gm). LMP percentile: 15%. heart rate: 147 beats per minute. number: 1 of 1. IMPRESSION: 1. Single live intrauterine has a heart rate of 147 beats per minute and is in cephalic presentation. 2. Averaged ultrasound age is 32 weeks and 0 days. 3. Fetus is at the 15th percentile of weight for gestational age. Dictated by: Dictated on workstation # [id number]
== END ==
LOC: RAD 14:00
PROVIDERS: ATTEND Nurse Practitioner Women's Health
DX: O24.410 Gestational diabetes mellitus in pregnancy, diet controlled (principal); N13.30 Unspecified hydronephrosis; Z3A.32 32 weeks gestation of pregnancy
CPT/HCPCS: 76705; 76805

== ENCOUNTER 2021-09-13 18:11 | Outpatient (CLI) | payer BC ==
[~2021-09-13] VITALS: Ht 162.5 cm; Wt 71.3 kg
[2021-09-13 18:40] VITALS: BP 114/81
[2021-09-13 18:43] LABS: BILIRUBIN,URINE NEGATIVE (NEGATIVE); CLARITY,URINE SL CLOUDY; COLOR,URINE YELLOW; GLUCOSE, URINE (UA) NEGATIVE (NEGATIVE); KETONES,URINE NEGATIVE (NEGATIVE); LEUKOCYTE ESTERASE ,URINE 3+ (NEGATIVE); NITRITE,URINE NEGATIVE (NEGATIVE); PH,URINE 6.5 (5-9); PROTEIN,URINE NEGATIVE (NEGATIVE)
[2021-09-13 18:47] LABS: BACTERIA,URINE MODERATE /HPF
[2021-09-13] MEDS ORDERED: ONDANSETRON 4 MG (ZOFRAN) ORAL DISSOLVE TAB PO STA (19:12)
[2021-09-13] MEDS ORDERED: ONDANSETRON 4 MG/2 ML (SDV) Z0FRAN ONE (19:20)
[2021-09-13 19:25] VITALS: BP 112/76
[2021-09-13] MEDS ORDERED: ONDANSETRON 4 MG (ZOFRAN) ORAL DISSOLVE TAB ONE (19:59)
--- NOTE | 2021-09-15 08:27 | Physician Query-Final Dx ---
JANET,09/15/21 0827: Clinic Account Progress/Dx Physician Query: Please give diagnosis Please include # weeks gestation Date of Service Sep 13, 2021 at 18:11 BRIA NELSON DO 09/16/21 0940: Clinic Account Progress/Dx DIAGNOSIS: Diagnosis 32 week gestation nausea/emesis intrahepatic cholestasis of JANET,SepSep 15, 2021 08:27 BRIA NELSON DO Sep 16, 2021 09:40
== END 2021-09-13 21:00 | disposition home or self-care (01) ==
LOC: WSo 18:11 → LDRP 18:11 → WSo 21:00
PROVIDERS: ATTEND Obstetrics & Gynecology
DX: O21.2 Late vomiting of pregnancy (principal); Z3A.33 33 weeks gestation of pregnancy
CPT/HCPCS: 81000; 82947; 87088; 99213

== ENCOUNTER → 2021-09-30 | Outpatient (CLI) | payer BC, MEDICAID ==
[~2021-09-30] MED LIST changes: +ACET-93 PO; +FERR325T24 PO; +IBUP-844 PO
--- NOTE | 2021-09-30 13:30 | Diagnostic Imaging Report ---
INDICATION: Follow-up growth. Gestational diabetes. TECHNIQUE: Multiple real-time grayscale images were obtained over the gravid uterus. COMPARISON: 09/08/2021. FINDINGS: A single live intrauterine gestation is visualized in cephalic presentation. heart tones measure 143 BPM. The placenta is fundal and not low lying. The CIPRIANO measures 6.9 cm. The cervix is closed and measures 3.3 cm in length. No anatomic abnormalities are visualized. The bilateral adnexa have a normal appearance without evidence of mass or free fluid. Biometrical measurements are as follows: Biparietal 9.12 cm, age 37 weeks 0 days. Head circumference 32.31 cm, age 36 weeks 4 days. Abdominal circumference 30.37 cm, age 34 weeks 3 days. Femur length 6.78 cm, age 34 weeks 6 days. Sonographic estimate age: 35 weeks 5 days. Sonographic estimated date of delivery: 10/30/2021. Estimated Weight: 2558 gm (+/- 374 gm). LMP percentile: 35%. heart rate: 143 beats per minute. number: 1 of 1. IMPRESSION: 1. Single live intrauterine gestation measuring 35 weeks 5 days with an estimated due date of 10/30/2021. These are within range of the clinical dates. 2. Lower limits of normal amniotic fluid measuring 6.9 cm. Previously, the CIPRIANO measured 20.9 cm. Recommend correlation with premature rupture of membranes and follow-up as indicated. Dictated by: Dictated on workstation # [id number]
== END ==
LOC: RAD 12:00
PROVIDERS: ATTEND Obstetrics & Gynecology
DX: O24.410 Gestational diabetes mellitus in pregnancy, diet controlled (principal); Z3A.35 35 weeks gestation of pregnancy
CPT/HCPCS: 76805

== ENCOUNTER 2021-10-02 12:25 | Inpatient (IN) | payer BC, MEDICAID ==
[~2021-10-02] VITALS: Ht 162.6 cm; Wt 72.6 kg
[2021-10-02] VITALS (22 sets, daily range): BP systolic 112–141; BP diastolic 56–95
[~2021-10-02 12:25] MED LIST changes: -ACET-93 PO; -FERR325T24 PO; -IBUP-844 PO
[2021-10-02] MEDS ORDERED: MINERAL OIL CONCENTRATE 99.9% 15 ML UDC TOP PRN (13:15)
[2021-10-02] MEDS ORDERED: TERBUTALINE INJ 1 MG/ML (BRETHINE) AMP SC PRN (13:15)
[2021-10-02] MEDS ORDERED: AMPICILLIN FOR IV USE 2,000 MG in NS (IVPB) 50 ML IV SCH (13:15)
[2021-10-02] MEDS ORDERED: LIDOCAINE/EPI 2% 1:200,00 (XYLOCAINE) 20 ML VIAL INJ PRN (13:15)
[2021-10-02] MEDS ORDERED: NS IV 1000 ML 1,000 ML IV SCH (13:15)
--- NOTE | 2021-10-02 13:24 | History & Physical-OB ---
OB - Chief Complaint & HPI Date/Time Date of Admission: Date of Admission: Oct 02, 2021 at 12:25 Date seen by a Provider: Oct 02, 2021 Chief Complaint/History OB-Reason for Admission/Chief: Rupture of Membranes (Complains of possible ROM for several days. CIPRIANO decreased from 20 to 6, watery, pink discharge noted on exam. ) Hx : 1 Hx Para: 0 Gestational Age in Weeks: 35 Gestational Age in Days: 5 Allergies and Home Medications Allergies Coded Allergies: azithromycin (Verified Allergy, Mild, 03/27/21) Sulfa (Sulfonamide Antibiotics) (Verified Allergy, Unknown, 03/27/21) Patient Home Medication List Ondansetron (Ondansetron Odt) 4 Mg Tab.rapdis, 4 MG PO Q6H PRN for NAUSEA/VOMITING Prescribed by: OLINDA ANGELO on 09/07/21 0848 OB - History Patient Past Medical History n/a Social History/Family History 2nd Hand Smoke Exposure: No OB - Assessment/Plan/Diagnosis Assessment Assessment: rupture of membranes Admission Dx 35 week gestataion Prolonged rupture of membranes intrahepatic cholestasis of Gestational diabetes A1 GBs Unknown Admission Status: Inpatient Order (span 2 midnights) Plan Induction Method: per Misoprostol Protocol (will do misoprostol due to cervical status, but she is ruptured so will do orally.) BRIA NELSON DO Oct 02, 2021 13:24
[2021-10-02 14:59] LABS: BILIRUBIN,URINE NEGATIVE (NEGATIVE); CLARITY,URINE CLEAR; COLOR,URINE YELLOW; GLUCOSE, URINE (UA) TRACE (NEGATIVE); KETONES,URINE NEGATIVE (NEGATIVE); LEUKOCYTE ESTERASE ,URINE 1+ (NEGATIVE); NITRITE,URINE NEGATIVE (NEGATIVE); PROTEIN,URINE NEGATIVE (NEGATIVE)
[2021-10-02 15:06] LABS: BACTERIA,URINE LARGE /HPF
[2021-10-02 15:07] LABS: AMORPHOUS SEDIMENT,UR FEW AMOR URATES /LPF
[2021-10-02 15:37] LABS: BASOPHILS # (AUTO) 0.1 10^3/uL (0.0-0.1); BASOPHILS % (AUTO) 0 % (0-10); EOSINOPHILS # (AUTO) 0.1 10^3/uL (0.0-0.3); EOSINOPHILS % (AUTO) 1 % (0-10); HEMATOCRIT 35 % (35-52); HEMOGLOBIN 10.9 g/dL (11.5-16.0); LYMPHOCYTES % (AUTO) 18 % (12-44); MEAN CORPUSCULAR HEMOGLOBIN 25 pg (25-34); MEAN CORPUSCULAR HGB CONC 32 g/dL (32-36); MEAN CORPUSCULAR VOLUME 80 fL (80-99); MEAN PLATELET VOLUME 11.8 fL (9.0-12.2); MONOCYTES % (AUTO) 9 % (0-12); NEUTROPHILS # (AUTO) 8.1 X 10^3 (1.8-7.8); NEUTROPHILS % (AUTO) 72 % (42-75); PLATELET COUNT 218 10^3/uL (130-400); WHITE BLOOD COUNT 11.3 10^3/uL (4.3-11.0)
[2021-10-02 15:54] LABS: ALBUMIN 3.1 GM/DL (3.2-4.5); BILIRUBIN,TOTAL 0.4 MG/DL (0.1-1.0); CALCIUM 8.9 MG/DL (8.5-10.1); CREATININE SERUM 0.63 MG/DL (0.60-1.30); POTASSIUM 3.7 MMOL/L (3.6-5.0); TOTAL PROTEIN 6.4 GM/DL (6.4-8.2)
[2021-10-02] MEDS: AMPICILLIN FOR IV USE 1,000 MG in NS (IVPB) 50 ML IV SCH ×2 (19:36→23:36)
[2021-10-02] MEDS ORDERED: ZOLPIDEM 5 MG (AMBIEN) TAB PO ONE (20:30)
[2021-10-02] MEDS ORDERED: morphine INJ 10 MG/ML 1ML (SYR OR VIAL) IVP STA (20:30)
[2021-10-02] MEDS ORDERED: BUTORPHANOL INJ 2 MG/ML (STADOL) VIAL ONE (21:58)
[2021-10-02] MEDS ORDERED: BUTORPHANOL INJ 2 MG/ML (STADOL) VIAL IV ONE (22:00)
[2021-10-02] MEDS ORDERED: fentaNYL 2 mcg/ml BUPIVA 0.125 100 ML ONE (22:05)
[2021-10-02] MEDS ORDERED: OXYTOCIN PRE-MIX DRIP 500 ML IV ONE (22:54)
[2021-10-02] MEDS ORDERED: D5 LR IV SOLUTION 0 ML IV ONE (22:54)
[2021-10-02] MEDS ORDERED: fentaNYL INJ 100 MCG/2 ML AMP ONE (23:11)
[2021-10-02] MEDS ORDERED: BUPIVACAINE 0.25% 30 ML (SENSORCAINE) VIAL ONE (23:11)
[2021-10-03] VITALS (17 sets, daily range): BP systolic 101–149; BP diastolic 55–90
[2021-10-03] MEDS ORDERED: LACTATED RINGERS 1,000 ML IV ONE ×2
[2021-10-03] MEDS ORDERED: fentaNYL INJ 100 MCG/2 ML AMP INJ ONE
[2021-10-03] MEDS ORDERED: ONDANSETRON 4 MG/2 ML (SDV) Z0FRAN IV PRN
[2021-10-03] MEDS ORDERED: EPIDURAL (fentaNYL 2 MCG/ML BUPIVA 0.125%)100 ML BAG EPI PRN
[2021-10-03] MEDS: OXYTOCIN PRE-MIX DRIP 500 ML IV SCH ×3 (00:20→01:20)
[2021-10-03] MEDS ORDERED: LIDOCAINE 1% INJ 20 ML VIAL ONE (00:48)
[2021-10-03] MEDS ORDERED: OXYTOCIN PRE-MIX DRIP 500 ML IV ONE (01:16)
--- NOTE | 2021-10-03 01:24 | OB Labor & Delivery Record ---
Vag Delivery Note Vag Delivery Note Date of Delivery: 10/03/21 Preoperative Diagnosis: Adore Gilbert is a (21 /Para 1 / 0, Gestational Age 35 6/7 weeks Prolonged rupture of membranes intrahepatic cholestasis of Gestational diabetes A1 GBs Unknown Postoperative Diagnosis: Same Surgeon: BRIA NELSON Anesthesia: epidural Delivery Type: Findings: Viable male infant, apgars 8/9, weight 5#12 ounces Lacerations: first degree Intact placenta with 3 vessel cord. No nuchal cord, body cord or shoulder dystoc ia Estimated Blood Loss: 200 ml Complications: None Condition: Stable Description of Procedure: The patient is a 21 year old female who presented to clinic with suspected prolonged rupture of membranes . She was admitted and informed consent was obtained. Her labor course was remarkable for misoprostol x 1, ampicillin x 3. She progressed rapidly from 6-8 cm to complete dilatation and began to push. She was then set up for delivery. The infant's head was delivered atraumatically in the MAX position. The shoulders and remainder of the infant's body were then delivered without difficulty. Upon delivery, the head was held below the level of the perineum and the mouth and nares were bulb suctioned. The cord was doubly clamped and cut and the infant was handed off to the pediatric staff. An intact placenta with 3-vessel cord delivered via Edgard and there was found to be minimal bleeding.~ Vigorous fundal massage was performed and the fundus was found to be firm. IV oxytocin was given. Examination of the vagina and perineum revealed a 1st degree laceration repaired in the usual fashion with 3-0 vicryl suture. Following the repair, sponge, instrument and needle counts were correct. Mom and baby were both in stable condition in the labor suite. Vitals - Labs Vital Signs - I&O Vital Signs Date Time Temp Pulse Resp B/P (MAP) Pulse Ox O2 Delivery O2 Flow Rate FiO2 10/02/21 21:00 18 Room Air 10/02/21 20:30 70 18 124/79 (94) Room Air 10/02/21 20:00 36.8 73 18 134/89 (104) Room Air 10/02/21 19:30 18 Room Air 10/02/21 19:00 37.7 80 18 126/73 (90) Room Air 10/02/21 17:30 37.5 84 18 127/65 (85) Room Air 10/02/21 12:50 37.2 98 18 97 Room Air 10/02/21 12:50 37.2 98 18 120/79 (93) 97 Room Air I & O 10/03/21 07:00 Intake Total 64.8 ml Balance 64.8 ml Labs Laboratory Tests 10/02/21 14:30: Urine Color YELLOW, Urine Clarity CLEAR, Urine pH 6.0, Urine Specific [employer] 1.010L, Urine Protein NEGATIVE, Urine Glucose (UA) TRACEH, Urine Ketones NEGATIVE, Urine Nitrite NEGATIVE, Urine Bilirubin NEGATIVE, Urine Urobilinogen 0.2, Urine Leukocyte Esterase 1+H, Urine RBC (Auto) 3+H, Urine RBC NONE, Urine WBC 10-25H, Urine Squamous Epithelial Cells 10-25H, Urine Renal Epithelial Cells NONE, Urine Crystals PRESENTH, Urine Amorphous Sediment FEW CRISTÓBAL URATESH, Urine Bacteria LARGEH, Urine Casts NONE, Urine Mucus NEGATIVE, Urine Culture Indicated YES 10/02/21 15:07: White Blood Count 11.3H, Red Blood Count 4.31, Hemoglobin 10.9L, Hematocrit 35, Mean Corpuscular Volume 80, Mean Corpuscular Hemoglobin 25, Mean Corpuscular Hemoglobin Concent 32, Red Cell Distribution Width 14.3, Platelet Count 218, Mean Platelet Volume 11.8, Immature Granulocyte % (Auto) 1, Neutrophils (%) (Auto) 72, Lymphocytes (%) (Auto) 18, Monocytes (%) (Auto) 9, Eosinophils (%) (Auto) 1, Basophils (%) (Auto) 0, Neutrophils # (Auto) 8.1H, Lymphocytes # (Auto) 2.0, Monocytes # (Auto) 1.0, Eosinophils # (Auto) 0.1, Basophils # (Auto) 0.1, Immature Granulocyte # (Auto) 0.1, Sodium Level 137, Potassium Level 3.7, Chloride Level 109H, Carbon Dioxide Level 18L, Anion Gap 10, Blood Urea Nitrogen 5L, Creatinine 0.63, Estimat Glomerular Filtration Rate 129, BUN/Creatinine Ratio 8, Glucose Level 99, Calcium Level 8.9, Corrected Calcium 9.6, Total Bilirubin 0.4, Aspartate Amino Transf (AST/SGOT) 32, Alanine Aminotransferase (ALT/SGPT) 34, Alkaline Phosphatase 435H, Total Protein 6.4, Albumin 3.1L 10/02/21 15:12: Glucometer 101 BRIA NELSON DO Oct 03, 2021 01:24
[2021-10-03] MEDS ORDERED: BENZOCAINE/MENTHOL (DERMOPLAST) 56 ML CAN TP PRN (01:30)
[2021-10-03] MEDS ORDERED: WITCH HAZEL(TUCKS) 40 EA JAR TOP PRN (01:30)
[2021-10-03] MEDS ORDERED: NALOXONE 0.4 MG/ML 1 ML (NARCAN) VIAL IV PRN ×2 (01:30)
[2021-10-03] MEDS ORDERED: TETANUS,DIPTH,PERTUSS P/F (BOOSTRIX) 0.5 ML VIAL IM ONE (01:30)
[2021-10-03] MEDS ORDERED: MEASLES,MUMPS,RUBELLA 1 EA INJ SQ ONE (01:30)
[2021-10-03] MEDS ORDERED: BUTORPHANOL INJ 2 MG/ML (STADOL) VIAL IV ONE (01:30)
[2021-10-03] MEDS ORDERED: IBUPROFEN 600 MG (MOTRIN) TAB PO ONE (01:51)
[2021-10-03] MEDS: IBUPROFEN 600 MG (MOTRIN) TAB PO SCH ×4 (01:54→21:57)
[2021-10-03] MEDS ORDERED: ACETAMINOPHEN 500 MG TAB (TYLENOL) PO SCH (06:00)
[2021-10-03] MEDS ORDERED: CATHETER FLUSH 10 ML SYR IV SCH (06:00)
[2021-10-03] MEDS: CATHETER FLUSH 10 ML SYR IV SCH ×2 (07:00→07:57)
[2021-10-03] MEDS ORDERED: ACETAMINOPHEN 500 MG TAB (TYLENOL) PO PRN (07:15)
[2021-10-03] MEDS ORDERED: FLU QUADRIvalent (3YOA+) 60 mcg/0.5 ml 2021-22(CANCER CTR) IM ONE (07:30)
[2021-10-03] MEDS: PRENATAL VITAMIN 1 EA TAB PO SCH (07:50)
[2021-10-03] MEDS: FERROUS SULF 325 MG (IRON) TAB PO SCH (08:00)
[2021-10-03] MEDS: DOCUSATE SODIUM 100 MG (COLACE) CAP PO SCH ×2 (08:01→21:56)
--- NOTE | 2021-10-03 12:33 | Anesthesia-Regional Post-Op ---
Regional Patient Condition Mental Status: Alert, Oriented x3 Circulation: Same as Pre-Op Headache: Absent Sensation: Full Recovery Motor Block: Absent Post Op Complications Complications None Follow Up Care/Instructions Patient Instructions None needed. Anesthesia/Patient Condition Patient is doing well, no complaints, stable vital signs, no apparent adverse anesthesia problems. No complications reported per nursing. CHAYITO LÓPEZ CRNA Oct 03, 2021 12:33
[2021-10-03] MEDS ORDERED: FERR325T24 PO (13:26)
[2021-10-03] MEDS ORDERED: IBUP-844 PO (13:26)
[2021-10-03] MEDS ORDERED: ACET-93 PO (13:26)
--- NOTE | 2021-10-03 13:27 | Discharge Inst-Women's Service ---
Discharge Inst-Women's Serv Depart Medication/Instructions New, Converted or Re-Newed RX: Transmitted to Pharmacy Final Diagnosis prolonged rupture of membranes intrahepatic cholestasis of gestational diabetes A1 35 week gestation Vaginal delivery Problems Reviewed?: Yes Consults/Follow Up Additional Follow Up: Yes (1-2 weeks with yvette and 6 weeks post ) Activity Activity: Activity as Tolerated Driving Instructions: You May Drive NO SMOKING: NO SMOKING Nothing Inside Vagina: No Douching, No [place], No Tampons Diet Discharge Diet: No Restrictions Symptoms to Report to : Bleeding Excessive, Pain Increased, Fever Over 101 Degrees F, Vaginal Bleeding Increase, Cramps in Feet or Legs, Vaginal Discharge Foul For Any Problems or Questions: Contact Your Physician BRIA NELSON DO Oct 03, 2021 13:27
[2021-10-04] MEDS: IBUPROFEN 600 MG (MOTRIN) TAB PO SCH ×4 (03:37→22:26)
[2021-10-04 03:38] VITALS: BP 120/80
[2021-10-04 06:14] LABS: BASOPHILS # (AUTO) 0.1 10^3/uL (0.0-0.1); BASOPHILS % (AUTO) 1 % (0-10); EOSINOPHILS # (AUTO) 0.2 10^3/uL (0.0-0.3); EOSINOPHILS % (AUTO) 2 % (0-10); HEMATOCRIT 31 % (35-52); HEMOGLOBIN 9.5 g/dL (11.5-16.0); LYMPHOCYTES # (AUTO) 2.3 10^3/uL (1.0-4.0); LYMPHOCYTES % (AUTO) 25 % (12-44); MEAN CORPUSCULAR HEMOGLOBIN 25 pg (25-34); MEAN CORPUSCULAR HGB CONC 31 g/dL (32-36); MEAN CORPUSCULAR VOLUME 81 fL (80-99); MEAN PLATELET VOLUME 11.2 fL (9.0-12.2); MONOCYTES % (AUTO) 11 % (0-12); NEUTROPHILS # (AUTO) 5.5 10^3/uL (1.8-7.8); NEUTROPHILS % (AUTO) 60 % (42-75); PLATELET COUNT 182 10^3/uL (130-400); WHITE BLOOD COUNT 9.2 10^3/uL (4.3-11.0)
[2021-10-04 09:57] VITALS: BP 129/68
[2021-10-04] MEDS: DOCUSATE SODIUM 100 MG (COLACE) CAP PO SCH ×2 (09:58→22:26)
[2021-10-04] MEDS: PRENATAL VITAMIN 1 EA TAB PO SCH (09:58)
[2021-10-04] MEDS: FERROUS SULF 325 MG (IRON) TAB PO SCH (09:58)
--- NOTE | 2021-10-04 12:10 | Postpartum Progress Note ---
Note Note Day #1 Subjective: Patient is without complaints. Ambulating, voiding. Tolerating a regular diet without nausea or vomiting. Normal lochia. Pain is well controlled with oral pain medications. Attempting to breastfeed. Denies CP, SOB, palpitations, HAYS, vision abnormalities, LE pain/swelling Objective: Vital Signs: T: 36.2 C P: 59 bpm RR: 18 bpm BP: 129/68 O2 sat: 99% RA Physical Exam: General - Alert and oriented, no apparent distress Respiratory: symmetric chest rise, non-labored respirations Heart: Normal rate and peripheral perfusion Abdomen - Soft, appropriately tender to palpation, non-distended, fundus firm below umbilicus Extremities - no edema, negative Hannah's bilaterally Assessment: post- day #1, status post uncomplicated vaginal delivery. Recovering well, hemodynamically stable Plan: Routine care. Encourage breast feeding. Encourage ambulation. Vitals - Labs Vital Signs - I&O Vital Signs Date Time Temp Pulse Resp B/P (MAP) Pulse Ox O2 Delivery O2 Flow Rate FiO2 10/04/21 09:57 36.2 59 18 129/68 (88) Room Air 10/04/21 03:38 36.1 73 18 120/80 (93) 100 Room Air 10/03/21 21:00 36.4 64 18 110/55 (73) 99 Room Air 10/03/21 16:00 36.7 61 18 106/57 (73) 99 Room Air 10/03/21 12:31 36.5 63 18 119/69 (86) 97 Room Air Labs Laboratory Tests 10/04/21 06:05: White Blood Count 9.2, Red Blood Count 3.76L, Hemoglobin 9.5L, Hematocrit 31L, Mean Corpuscular Volume 81, Mean Corpuscular Hemoglobin 25, Mean Corpuscular Hemoglobin Concent 31L, Red Cell Distribution Width 14.5, Platelet Count 182, Mean Platelet Volume 11.2, Immature Granulocyte % (Auto) 3, Neutrophils (%) (Auto) 60, Lymphocytes (%) (Auto) 25, Monocytes (%) (Auto) 11, Eosinophils (%) (Auto) 2, Basophils (%) (Auto) 1, Neutrophils # (Auto) 5.5, Lymphocytes # (Auto) 2.3, Monocytes # (Auto) 1.0, Eosinophils # (Auto) 0.2, Basophils # (Auto) 0.1, Immature Granulocyte # (Auto) 0.2H, Glucose Level 81 Microbiology 10/02/21 Urine Culture - Final, Complete NO GROWTH EVER CORRALES MD Oct 04, 2021 12:10
[2021-10-04 16:09] VITALS: BP 116/56
[2021-10-04 21:54] VITALS: BP 115/64
[2021-10-05 03:49] VITALS: BP 110/59
[2021-10-05] MEDS: IBUPROFEN 600 MG (MOTRIN) TAB PO SCH ×2 (03:49→10:06)
[2021-10-05 10:04] VITALS: BP 119/67
[2021-10-05] MEDS: DOCUSATE SODIUM 100 MG (COLACE) CAP PO SCH (10:05)
[2021-10-05] MEDS: FERROUS SULF 325 MG (IRON) TAB PO SCH (10:05)
[2021-10-05] MEDS: PRENATAL VITAMIN 1 EA TAB PO SCH (10:05)
--- NOTE | 2021-10-05 12:25 | Postpartum Progress Note ---
Note Note Day #2 Subjective: Patient is without complaints. Ambulating, voiding. Tolerating a regular diet without nausea or vomiting. Normal lochia. Pain is well controlled with oral pain medications. Attempting to breastfeed, and producing more. Denies CP, SOB, palpitations, HAYS, vision abnormalities, LE pain/swelling. Objective: Vital Signs 10/05/21 10/05/21 03:49 10:04 Temp 36.2 Pulse 72 Resp 18 B/P (MAP) 119/67 (84) Pulse Ox 98 O2 Delivery Room Air Physical Exam: General - Alert and oriented, no apparent distress Respiratory: symmetric chest rise, non-labored respirations Heart: Normal rate and peripheral perfusion Abdomen - Soft, appropriately tender to palpation, non-distended, fundus firm below umbilicus Extremities - no edema, negative Hannah's bilaterally Assessment: post- day #2, status post uncomplicated vaginal delivery. Recovering well, hemodynamically stable Plan: Routine care. Encourage breast feeding. Encourage ambulation. Ferrous sulfate supplementation. Plan for discharge: home today Vitals - Labs Vital Signs - I&O Vital Signs Date Time Temp Pulse Resp B/P (MAP) Pulse Ox O2 Delivery O2 Flow Rate FiO2 10/05/21 10:04 36.2 72 18 119/67 (84) Room Air 10/05/21 03:49 36.4 53 20 110/59 (76) 98 Room Air 10/04/21 21:54 36.7 73 18 115/64 (81) 99 Room Air 10/04/21 16:09 36.0 69 18 116/56 (76) 99 Room Air Labs Microbiology 10/02/21 Urine Culture - Final, Complete NO GROWTH EVER CORRALES MD Oct 05, 2021 12:24
== END 2021-10-05 15:30 | disposition home or self-care (01) | DRG 805 ==
LOC: LDRP 12:25
PROVIDERS: ADMIT Obstetrics & Gynecology; ATTEND Obstetrics & Gynecology
PROC: 3E0DXGC Introduction of Other Therapeutic Substance into Mouth and Pharynx, External Approach (ICD-10-PCS; 2021-10-02)
PROC: 10E0XZZ Delivery of Products of Conception, External Approach (ICD-10-PCS; principal; 2021-10-03)
PROC: 0HQ9XZZ Repair Perineum Skin, External Approach (ICD-10-PCS; 2021-10-03)
DX: O42.913 Preterm premature rupture of membranes, unspecified as to length of time between rupture and onset of labor, third trimester (principal); K83.1 Obstruction of bile duct; Z37.0 Single live birth; O26.62 Liver and biliary tract disorders in childbirth; O24.420 Gestational diabetes mellitus in childbirth, diet controlled; O70.0 First degree perineal laceration during delivery; Z3A.35 35 weeks gestation of pregnancy; Z23 Encounter for immunization; Z88.1 Allergy status to other antibiotic agents; Z88.2 Allergy status to sulfonamides
CPT/HCPCS: 36415; 80053; 81000; 82947; 85025; 86850; 86900; 86901; 87088

== ENCOUNTER 2022-08-30 19:46 | Outpatient (CLI) | payer MEDICAID ==
[~2022-08-30] VITALS: Ht 162.6 cm; Wt 67.8 kg
[~2022-08-30 19:46] MED LIST changes: +ACET-93 PO; +FERR325T24 PO; +IBUP-844 PO
[2022-08-30 20:10] VITALS: BP_SYST 107; BP_DIAS 48; BP_DIAS 58
[2022-08-30 20:22] LABS: BILIRUBIN,URINE NEGATIVE (NEGATIVE); CLARITY,URINE SL CLOUDY; COLOR,URINE YELLOW; GLUCOSE, URINE (UA) TRACE (NEGATIVE); KETONES,URINE 1+ (NEGATIVE); LEUKOCYTE ESTERASE ,URINE 2+ (NEGATIVE); NITRITE,URINE NEGATIVE (NEGATIVE); PROTEIN,URINE NEGATIVE (NEGATIVE)
[2022-08-30 20:30] LABS: BACTERIA,URINE MODERATE /HPF; RBC,URINE 0-2 /HPF; SQUAMOUS EPITHELIAL CELL,UR 25-50 /HPF
[2022-08-30 20:40] VITALS: BP 110/65
[2022-08-30 21:10] VITALS: BP 113/62
[2022-08-30] MEDS ORDERED: PREN1TAB19 PO (21:20)
[2022-08-30 21:30] VITALS: BP 109/59
--- NOTE | 2022-08-31 08:45 | Physician Query-Final Dx ---
Clinic Account Progress/Dx Physician Query: Please give diagnosis Please include # weeks gestation Date of Service Aug 30, 2022 at 19:46 JANET,SepAug 31, 2022 08:45
== END 2022-08-30 21:39 | disposition home or self-care (01) ==
LOC: LDRP 19:46 → WSo 19:46
PROVIDERS: ATTEND Obstetrics & Gynecology
DX: Z34.92 Encounter for supervision of normal pregnancy, unspecified, second trimester (principal); Z3A.23 23 weeks gestation of pregnancy
CPT/HCPCS: 81000; 87088